=== PATIENT | female | born 1970 | race Caucasian/White ===

== ENCOUNTER → 2021-10-30 | Outpatient (CLI) | payer BC | END | disposition home or self-care (01) | LOC: LAB SHORT 08:00 → LAB 08:00 | DX: Z00.00 Encounter for general adult medical examination without abnormal findings (principal); N95.9 Unspecified menopausal and perimenopausal disorder; R74.01 Elevation of levels of liver transaminase levels; R53.83 Other fatigue; R63.5 Abnormal weight gain | CPT/HCPCS: 85651 ==